=== PATIENT | male | born 1990 | race Hispanic/Latino ===

== ENCOUNTER 2017-11-20 18:32 | Emergency (ER) | payer BC ==
[2017-11-20 18:41] VITALS: BP 124/74; PULSE 69; RESP 20; TEMP 97.5; O2SAT 100
[2017-11-20] MEDS ORDERED: Oxycodone/Acetaminophen 5/325 mg Tab PO STA (18:45)
--- NOTE | 2017-11-20 19:18 | ED PDOC ---
HPI: General Adult Time Seen by Provider: 11/20/17 18:42 Chief Complaint (Nursing): Finger,Hand,&Wrist Chief Complaint (Provider): Finger,Hand,&Wrist History Per: Patient History/Exam Limitations: no limitations Onset/Duration Of Symptoms: Hrs Current Symptoms Are (Timing): Still Present Additional Complaint(s): 27 year old male presents to the emergency department with a complaint of a right wrist pain s/p injury. Patient states earlier today he fell over while snowboarding laying backwards injuring the right wrist. Reports he was seen at an urgency care but told to visit the emergency department as he had a dislocation. Denies further medical complaints. Past Medical History Reviewed: Historical Data, Nursing Documentation, Vital Signs Vital Signs: Last Vital Signs Temp 97.5 F L 11/20/17 18:39 Pulse 69 11/20/17 18:39 Resp 20 11/20/17 18:39 BP 124/74 11/20/17 18:39 Pulse Ox 100 11/20/17 21:34 - Medical History PMH: No Chronic Diseases - Surgical History Surgical History: No Surg Hx - Family History Family History: States: Unknown Family Hx - Social History Current smoker - smoking cessation education provided: No Alcohol: Social Drugs: Denies - Home Medications Home Medications: Ambulatory Orders Medication Instructions Recorded Ibuprofen [Motrin Tab] 800 mg PO Q6 PRN #30 tab 11/20/17 oxyCODONE/Acetaminophen [Percocet 1 ea PO Q8 PRN #10 tab 11/20/17 5/325 mg Tab] - Allergies Allergies/Adverse Reactions: Allergies Allergy/AdvReac Type Severity Reaction Status Date / Time Penicillins Allergy ANAPHYLAXIS Verified 11/20/17 18:38 Review of Systems ROS Statement: Except As Marked, All Systems Reviewed And Found Negative (As per HPI, otherwise negative) Musculoskeletal: Positive for: Hand Pain (Right wrist) Physical Exam - Reviewed Nursing Documentation Reviewed: Yes Vital Signs Reviewed: Yes - Physical Exam Appears: Positive for: In Acute Distress (Moderate painful) Head Exam: Positive for: NORMAL INSPECTION Extremity: Positive for: Tenderness (Moderate tenderness to the right dorsal wrist and right dorsal hand. ), Capillary Refill (<2 secs. Radial pulse 2+. ). Negative for: Deformity Neurologic/Psych: Positive for: Alert, Oriented (x3) - ECG O2 Sat by Pulse Oximetry: 100 (RA) Pulse Ox Interpretation: Normal Medical Decision Making Medical Decision Making: Time: 1844 Initial impression: Right hand injury s/p snowboarding Initial plan: --2 tablets of Percocet 5/325 mg --Right hand x-ray --Right wrist x-ray --Reevaluation Time: 1949 --Right wrist FINDINGS: Bones/joints: Unremarkable. No acute fracture. No dislocation. Soft tissues: Unremarkable. No radiopaque foreign body. IMPRESSION: No visible acute fracture or dislocation. Time: 1949 --Right hand FINDINGS: Bones/joints: Unremarkable. No acute fracture. No dislocation. Soft tissues: Unremarkable. No radiopaque foreign body. IMPRESSION: No visible acute fracture or dislocation. Time: 1956 --Pt. with continued pain. --Right ext Upper w/o contrast CT Time: 2099 --CT of the right ext FINDINGS: Bones/joints: There is perilunate dislocation with the capitate bone positioned dorsal to the lunate with no visible acute fracture. There is wrist joint effusion. There is a small chronic appearing ossicle adjacent to the base of the fourth metacarpal. Soft tissues: Unremarkable. IMPRESSION: 1. There is perilunate dislocation with the capitate bone positioned dorsal to the lunate with no visible acute fracture. 2. There is wrist joint effusion. Case d/w Dr. Rosas, hand surgery pharmacy operations manager, who recommends outpatient f/u in his office on Wednesday with splinting. Neuorvascular compromise was d/w Dr. Rosas who states pt. does not require emergent intervention at this time. Time: 2128 Patient is medically stable for discharge and advised to follow up with plastic surgeon, Dr. Mikael Rosas MD. Pt. given CD of CT, x-rays. Pt. verbalized understanding of necessary f/u. Clinical Impression: Closed perilunate dislocation Scribe Attestation: Documented by Lavonne Fitzgerald, acting as a scribe for Aramis Livingston PA-C Provider Scribe Attestation: All medical record entries made by the Scribe were at my direction and personally dictated by me. I have reviewed the chart and agree that the record accurately reflects my personal performance of the history, physical exam, medical decision making, and the department course for this patient. I have also personally directed, reviewed, and agree with the discharge instructions and disposition. Disposition - Clinical Impression Clinical Impression: Closed perilunate dislocation - Patient ED Disposition Is Patient to be Admitted: No Counseled Patient/Family Regarding: Studies Performed, Diagnosis, Need For Followup - Disposition Referrals: Mikael Rosas MD [Staff Provider] - Disposition: Routine/Home Disposition Time: 21:29 Condition: STABLE Additional Instructions: Follow up with Dr. Rosas, plastic surgeon, on Wednesday WITHOUT FAIL. Prescriptions: Ibuprofen [Motrin Tab] 800 mg PO Q6 PRN #30 tab PRN Reason: Pain oxyCODONE/Acetaminophen [Percocet 5/325 mg Tab] 1 ea PO Q8 PRN #10 tab PRN Reason: Pain Instructions: Splint Care (ED) Forms: [facility] (Lithuanian) Print Language: POLISH
--- NOTE | 2017-11-21 08:43 | RAD ---
PROCEDURE: Right Hand Radiographs. HISTORY: trauma COMPARISON: None. FINDINGS: BONES: No acute fracture. JOINTS: Limited evaluation, but findings suggestive of perilunate dislocation. SOFT TISSUES: Normal. OTHER FINDINGS: None. IMPRESSION: Limited evaluation, but findings suggestive of perilunate dislocation. ER notification submitted electronically.
--- NOTE | 2017-11-21 08:44 | RAD ---
PROCEDURE: Right Wrist Radiographs. HISTORY: trauma COMPARISON: None. FINDINGS: BONES: No acute fracture. JOINTS: Limited evaluation, but findings suggestive of perilunate dislocation. SOFT TISSUES: Normal. OTHER FINDINGS: None. IMPRESSION: Limited evaluation due to absence of a lateral radiograph, but findings suggestive of perilunate dislocation. ER notification submitted electronically.
--- NOTE | 2017-11-21 08:59 | CT ---
PROCEDURE: CT of the right wrist/ hand. HISTORY: attention R hand and R wrist; s/p fall COMPARISON: Right wrist and radiographs performed earlier the same day. TECHNIQUE: Contiguous axial images of the right wrist/hand were obtained. Coronal and sagittal reformats were generated. This CT exam was performed using one or more of the following dose reduction techniques: Automated exposure control, adjustment of the mA and/or kV according to patient size, and/or use of iterative reconstruction technique. FINDINGS: BONES: Perilunate dislocation. No fracture or focal lesion. SOFT TISSUES: Soft-tissue swelling/ edema about the wrist. IMPRESSION: Perilunate dislocation. No acute fracture.
== END 2017-11-20 21:38 | disposition home or self-care (01) ==
LOC: H.ER 18:32
DX: S63.091A Other subluxation of right wrist and hand, initial encounter (principal); W19.XXXA Unspecified fall, initial encounter; Y92.89 Other specified places as the place of occurrence of the external cause